=== PATIENT | male | born 1985 | race Caucasian/White ===

== ENCOUNTER 2018-08-12 05:02 | Emergency (ER) | payer OTHER ==
[~2018-08-12] VITALS: Ht 175.3 cm; Wt 68.0 kg
[2018-08-12] MEDS ORDERED: AMOX-CLAV 875-1 EACH PO (06:59)
[2018-08-12] MEDS ORDERED: KETO10TA2 PO (06:59)
[2018-08-12] MEDS ORDERED: CORTISPORIN EAR10 M1 OT (06:59)
== END 2018-08-12 07:28 | disposition home or self-care (01) ==
LOC: ER 05:02
DX: H66.92 Otitis media, unspecified, left ear (principal)